=== PATIENT | male | born 1950 | race Caucasian/White ===

== ENCOUNTER → 2023-03-18 12:44 | Outpatient (REF) | payer MEDICARE, OTHER, SELFPAY | LOC: DHCBS HW 12:44 | PROVIDERS: ATTENDING PHYSICIAN Internal Medicine Cardiovascular Disease; FAMILY PHYSICIAN Family Medicine | DX: I10 Essential (primary) hypertension (principal) | CPT/HCPCS: 93306 ==

== ENCOUNTER → 2023-03-28 10:53 | Outpatient (REF) | payer MEDICARE, OTHER, SELFPAY | LOC: RAD 10:53 | PROVIDERS: ATTENDING PHYSICIAN Internal Medicine Cardiovascular Disease | DX: I10 Essential (primary) hypertension (principal); I65.23 Occlusion and stenosis of bilateral carotid arteries | CPT/HCPCS: 93880 ==

== ENCOUNTER → 2024-05-04 11:55 | Outpatient (REF) | payer MEDICARE, OTHER, SELFPAY | LOC: HWRCS 11:55 | PROVIDERS: ATTENDING PHYSICIAN Internal Medicine Cardiovascular Disease; FAMILY PHYSICIAN Family Medicine | DX: I21.4 Non-ST elevation (NSTEMI) myocardial infarction (principal); R07.9 Chest pain, unspecified | CPT/HCPCS: 78452; 93017; A9500 ==

== ENCOUNTER 2024-08-20 06:23 | Day surgery (SDC) | payer MEDICARE, OTHER, SELFPAY | END 2024-08-20 12:26 | disposition home or self-care (01) | LOC: GI 06:23 | PROVIDERS: ATTENDING PHYSICIAN Internal Medicine Gastroenterology | DX: Z12.11 Encounter for screening for malignant neoplasm of colon (principal); R19.5 Other fecal abnormalities; K64.8 Other hemorrhoids; K57.30 Diverticulosis of large intestine without perforation or abscess without bleeding; D12.2 Benign neoplasm of ascending colon; D12.3 Benign neoplasm of transverse colon | CPT/HCPCS: 45385; 45380; 88305 ==

== ENCOUNTER 2024-10-26 13:57 | Emergency (ER) | payer MEDICARE, OTHER, SELFPAY ==
[2024-10-26 14:13] VITALS: BP 123/63
--- NOTE | 2024-10-26 16:01 | ED.GENMED ---
History of Present Illness
General
Chief Complaint: Musculo-Skeletal Complaint
Source: patient and spouse
Exam Limitations: none
Time Seen by Provider: 10/26/24 16:00
Nursing documentation reviewed up to this point in time: agreed with
History of Present Illness
History of Present Illness:
The patient is a pleasant 74-year-old man who reports that he was carrying car mats in his arms down the steps. Patient reports that he misjudged the last step, missed it, and ended up falling onto his left side. He reports he did not hit his
head. Patient reports scraping of his right lower leg and ankle area. Patient does have mild pain of the right ankle. Additionally, patient reports that he has had pain since the fall radiating from his left hip down towards his left knee and
left foot. Patient reports that when he walks, he feels as though his left leg is extremely painful and going to give out. Patient denies weakness and numbness of his legs. He denies neck pain and back pain. Patient reports that on the way to
the emergency department, he had a very brief episode of chest pain. He reports he does get chest pain from time to time and is not worried about it. He currently has no chest pain. Patient adamantly does not want any blood work done to check his
heart. He denies shortness of breath, sweating and cough.
Past History
Past History
ED Past Medical History: CAD
ED Past Surgical History: Cardiac and Orthopedic
Patient has exhibited threatening behavior?: No
PSI?: No
Social History
Tobacco: Former smoker
Alcohol: None
Drug: None
Personal:
Living: with family
Employment: Retired
Family History
Family History: Negative Early CAD or CAD
Review of Systems
Review of Systems
Allergies reviewed?: Yes
All Other Systems: ROS reviewed and negative except as documented in HPI and ROS
Constitutional: Reports no symptoms
EENT: Reports no symptoms
Cardiac: Reports chest pain
ABD/GI: Reports no symptoms
: Reports no symptoms
Musculoskeletal: Reports joint pain
Skin: Reports other
Neurological: Reports no symptoms
Endocrine: Reports no symptoms
Hematologic/Lymphatic: Reports no symptoms
Psychiatric: Reports no symptoms
Phy Exam
Physical Exam
Physical Exam:
Physical Exam
General: no apparent distress, not acutely ill. Atraumatic appearing face and head. Appears comfortable and well
Neck: supple. Nontender C-spine
Heart: s1/s2 regular rate and rhythm, no chest wall tenderness. No vertebral spine tenderness
Lungs: no acute respiratory distress. clear bilaterally
Abdomen: Soft, nontender, no pulsatile mass
Neuro: alert and oriented. no focal neurological deficits. 5 out of 5 strength in all extremities. No saddle anesthesia. Equal sensation of the arms and legs bilaterally
Skin: Small superficial skin abrasion of right anterior ankle as well as superficial scratches of anterior right lower leg
Psychiatric: well kept. interactive and cooperative
Extremities: Mild bony tenderness of right ankle. No specific area of bony tenderness of left lower extremity. Patient able to fully flex and extend at bilateral hips and knees. Patient reports that when he moves around, he
has generalized pain of left hip radiating into left knee and down into left foot. Strong pulses of bilateral feet. Soft compartments
Course
Orders/Labs/Results
Orders:
Orders
10/26/24 14:18
ECG [Electrocardiogram (*1)] Urgent
Reason for Study: Chest Pain
EKG- Treatment ONCE
10/26/24 16:19
Hip, Left 2-3 Views [CR Hip - LT w/wo Pel 2-3 Vw*] Urgent
Comment:
Reason For Exam: FALL, LEFT HIP AND THiGH PAIN
Include a pelvis x-ray?: Yes
10/26/24 16:20
Acetaminophen [Tylenol] 1,000 mg PO NOW STA
Ankle, Right 3 view CR [CR Ankle - Right Min 3 Views *] Urgent
Comment:
Reason For Exam: fall, right ankle pain
Knee, Left 4 or More Views [CR Knee - Left 4 Or More View*] Urgent
Comment:
Reason For Exam: fall, pain from L hip down thigh into knee
10/26/24 16:21
CR Lumbar Spine Comp Min 4 Vw* Urgent
Comment:
Reason For Exam: fall, L hip and L leg pain
10/26/24 16:[address] Non Medication Order As Directed
Physician Order: please clean R ankle abrasion and apply antobiotic ointment and apply bandaid
Vital Signs
Initial and Last Documented VS:
Initial Vital Signs
Temp Pulse Resp BP Pulse Ox
98.4 F 63 18 123/63 95
10/26/24 14:13 10/26/24 14:13 10/26/24 14:13 10/26/24 14:13 10/26/24 14:13
Last Documented Vital Signs
Temp Pulse Resp BP Pulse Ox
98.4 F 63 18 123/63 95
10/26/24 14:13 10/26/24 14:13 10/26/24 14:13 10/26/24 14:13 10/26/24 16:02
MDM/Problems Addressed
Differential Diagnosis Includes:
Left hip fracture, left hip contusion, right ankle contusion
MDM/Problems Addressed:
Patient presents with acute left leg and right ankle pain after trip and fall
Chronic conditions affecting care: HTN
Acute Exacerbation and/or Progression of Chronic Illness:
Patient's blood pressure is barely elevated and appears to be well-controlled
*Radiology
Radiology exam reviewed: preliminary read by ED provider (Lumbar spine, right ankle, left hip and left knee x-rays reviewed by me. No acute fracture) and radiology read reviewed
*Pulse Oximetry
SaO2: 95
Oxygen Mode of Delivery: Room air
Patient hypoxic: no
Comment: 95% on room air
*EKG
Interpreted by ED Provider?: Yes
Interpretation: abnormal
Comparison EKG: no changes
Rate: bradycardiac
Rhythm: sinus
[place]: left axis deviation
Interval: normal interval
QRS Pattern: normal QRS
Ischemia: non-specific ST changes
*Epic Cupid Analyst Interpretation
Rate: Epic Cupid Analyst- N/A
*Critical Care Note
Total Time (30-74mins, 75-104mins- exclusive of procedures): Not Applicable
Data Reviewed
Review of Other/Old Records Reveals: Testing (Cardiac echo shows an EF of 60% in 2023)
Source: patient and spouse
Further Testing Considered But Not Given:
I talked the patient about doing blood work to check a troponin level. However, patient adamantly does not feel this is necessary, as he states his brief chest pain is very typical for him. Patient is resting comfortably with clear breath sounds.
There is no sign of heart failure or pneumonia. Patient will be encouraged to return with any concerning chest pain or any shortness of breath.
Patient Management
Social determinants of health affecting care: Living situation and Strong social support
Escalation/DeEscalation of care consider admission/obs:
Patient remains chest pain-free and well and comfortable appearing. He is smiling. Patient told to return with any concerning chest pain or shortness of breath. No fracture seen on x-rays.
ED Attending Note
-
Portions of this chart may have been created with voice recognition software.� Occasional wrong word or��sound alike� substitutions may have occurred due to the inherent limitations of voice recognition software.
Discharge Plan
Departure
Patient Disposition: Home (Routine Discharge)
Date of Disposition: 10/26/24
Time of Disposition: 18:51
Patient with high blood pressure during this ER visit?: Yes
Condition: Good
Covid-19: Not Applicable
Discharge Problem:
Contusion of left hip and thigh, Abrasion of ankle, right
Instructions: Contusion (DC), Abrasions - ED (DC), BLOOD PRESSURE
Prescriptions:
No Action
triamcinolone acetonide [Nasacort] 10.8 ML aerosol,spray
55 mcg intranasal DAILYPRN PRN (Reason: allergies )
lisinopril 2.5 MG tablet
2.5 mg PO DAILY Qty: 30 3RF
sertraline 50 MG tablet
50 mg PO DAILY
atorvastatin 80 MG tablet
80 mg PO QPM
metformin 500 MG tablet
500 mg PO DAILY
isosorbide mononitrate 30 MG tablet extended release 24 hr
30 mg PO DAILY
fexofenadine [Mercedes] 180 MG tablet
180 mg PO DAILY
amlodipine 2.5 MG tablet
2.5 mg PO DAILY
mupirocin 1 APPLIC ointment
1 applic topical BID Qty: 1 0RF
Patient Comments:
bidx3 days, last dose 01/10 pm
sennosides [senna] 1 TABLET tablet
2 tab PO BID 0RF
acetaminophen 325 MG tablet
650 mg PO Q4HWA 0RF
docusate sodium 100 MG capsule
100 mg PO BID 0RF
clopidogrel 75 MG tablet
75 mg PO DAILY Qty: 0 0RF
Rx Instructions:
RESUME Jan
aspirin 81 MG tablet,delayed release (DR/EC)
81 mg PO BID Qty: 0 0RF
Rx Instructions:
2x daily x one month
gabapentin 300 MG capsule
300 mg PO TID Qty: 90 0RF
Rx Instructions:
tid x one week
icpxjstm-rab-PF-lycopen-lutein [Centrum Silver] 1 EACH tablet
1 ea PO DAILY Qty: 0 0RF
Rx Instructions:
RESUME 7 DAYS
coenzyme Q10 [Co Q-10] 200 MG capsule
200 mg PO DAILY Qty: 0 0RF
Rx Instructions:
RESUME 7 DAYS
oxycodone 5 MG tablet
5 mg PO Q6HPRN PRN (Reason: moderate-severe pain) Qty: 35 0RF
Rx Instructions:
1 tab moderate pain or 2 if pain severe
Dx total joint replacement
ongoing therapy
Referrals:
Shweta Salinas DO [Family Provider, Family Practice]
Activity Restrictions/Additional Instructions:
Take 1000 mg Tylenol every 4-6 hours for pain. Weight-bear as tolerated. Please apply antibiotic ointment to your abrasions once a day and keep ankle abrasion covered with a Band-Aid
Interventions
Interventions:
*Risk Screen - Suicide Last Done: 10/26/24 14:13
Discharge Date and Time
Print Language: [id number]
[2024-10-26 18:05] VITALS: BP 134/82
[2024-10-26] MEDS: TYLENOL 1000 MG PO (18:58)
== END 2024-10-26 19:44 | disposition home or self-care (01) ==
LOC: EMR 13:57
PROVIDERS: EMERGENCY PHYSICIAN Emergency Medicine; FAMILY PHYSICIAN Family Medicine
DX: S70.02XA Contusion of left hip, initial encounter (principal); S70.12XA Contusion of left thigh, initial encounter; S90.511A Abrasion, right ankle, initial encounter; W01.0XXA Fall on same level from slipping, tripping and stumbling without subsequent striking against object, initial encounter; I25.10 Atherosclerotic heart disease of native coronary artery without angina pectoris; I10 Essential (primary) hypertension; Z47.1 Aftercare following joint replacement surgery; Z87.891 Personal history of nicotine dependence; Z96.643 Presence of artificial hip joint, bilateral
CPT/HCPCS: 99283; 72110; 73502; 73564; 73610; 93005

== ENCOUNTER → 2024-10-29 11:57 | Outpatient (REF) | payer MEDICARE, OTHER, SELFPAY | LOC: HWRAD 11:57 | PROVIDERS: ATTENDING PHYSICIAN Family Medicine | DX: M89.8X6 Other specified disorders of bone, lower leg (principal) | CPT/HCPCS: 73590 ==